=== PATIENT | female | born 1945 ===

== ENCOUNTER 2018-03-04 19:51 | Inpatient (IN) | payer MEDICARE ==
[2018-03-04] MEDS ORDERED: Ondansetron HCl/PF 4 MG/2 ML Vial IVP PRN (21:52)
[2018-03-04] MEDS ORDERED: Acetaminophen 325 MG TAB PO PRN (21:52)
[2018-03-04] MEDS ORDERED: Ondansetron ODT 4 MG TAB SL PRN (21:52)
[2018-03-04] MEDS ORDERED: Phenazopyridine HCl 97.5 MG TABLET PO PRN (23:01)
[2018-03-04] MEDS ORDERED: Milk Of Magnesia 30 ML UDCUP PO PRN (23:01)
[2018-03-04] MEDS ORDERED: Mag-Al 1200 mg/1200 mg/30 ML UDCUP PO PRN (23:01)
[2018-03-04] MEDS ORDERED: Loperamide HCl 2 MG CAP PO PRN (23:01)
[2018-03-04] MEDS ORDERED: Albuterol Sulfate 1.25 MG/3 ML NEB NEB PRN (23:01)
[2018-03-05 00:50] VITALS: BMI 25.1
[2018-03-05] MEDS: cefTRIAXone\\ROCEPHIN 1 GM in Sodium Chloride 0.9% 100 ML IVPB SCH (01:48)
[2018-03-05] MEDS ORDERED: guaiFENesin/Dextromethorphan 10 ML UDCUP PO PRN (06:23)
[2018-03-05] MEDS ORDERED: Docusate Calcium (SURFAK) 240 MG CAP PO PRN (06:23)
[2018-03-05] MEDS ORDERED: Dextrose 5% in Water 1,000 ML IV PRN (06:23)
[2018-03-05] MEDS ORDERED: Dextrose 50% Abboject 50 ML SYRINGE SLOW IVP PRN (06:23)
--- NOTE | 2018-03-05 08:06 | HP ---
PRIMARY CARE PHYSICIAN: Dr. Gonzalez at [facility]. CODE STATUS: DNR has been verified in chart. TIME OF EVALUATION: 2300. CHIEF COMPLAINT: The patient was found to have fever, worsening mentation. History gathered from records and nursing staff. HISTORY OF PRESENT ILLNESS: This is a 72-year-old female with past medical history of Alzheimer disease, also has a history of sacral ulcer, that is chronic, brought to the hospital today after in the prison noted the patient has a temperature of 103, change in mental status, that it was worse than at the baseline dementia for the patient. There are no clear triggers, no alleviating factors. History is gathered from records, patient is unable to give any history. REVIEW OF SYSTEMS: Unable to obtain, patient is nonverbal. PAST MEDICAL HISTORY: As per records, Alzheimer disease, chronic wound, atrial fibrillation, diabetes, hypertension, cerebrovascular accident. SOCIAL HISTORY: The patient lives in [facility]. PAST SURGICAL HISTORY: Unable to obtain since patient is nonverbal. FAMILY HISTORY: Unable to obtain as the patient is nonverbal. SOCIAL HISTORY: No reported history of smoking, alcohol or drugs. HOME MEDICATIONS: Please see home medication reconciliation for details. PHYSICAL EXAMINATION: VITAL SIGNS: Patient's blood pressure has been in the 130-140 systolic, with a heart rate of 96, normal temperature, respiratory rate 16. GENERAL APPEARANCE: The patient is nonverbal, resting comfortable in bed, no acute distress. HEENT: Moist oral mucosa. RESPIRATORY: Bilateral air entry. No rales, no wheezing. Symmetrical expansion. CARDIOVASCULAR: Normal rate, regular rhythm, no gallop. No edema. ABDOMEN: Soft, normal bowel sounds. : Baseline renal function, the patient has hypertrophic changes due to underlying dementia. SKIN: Warm and intact. No pain, no rash except for one in the sacral area. NEUROLOGIC: Patient has underlying severe dementia, she is at baseline sensorium. No evidence of any new focal weakness. PSYCHIATRIC: Unable to explore. LABORATORY DATA: Labs prior to transfer were reviewed. Sodium 142, potassium 4.1, chloride level 108, CO2 of 24, anion gap 14, glucose level 229, creatinine 0.6, BUN and creatinine ratio 39, GFR 118. LFTs were normal. White count 11.8 , hemoglobin 11, MCV 75, platelet count is 157. Urine was positive with white count 10-15. ASSESSMENT AND PLAN: 1. Acute encephalopathy on top of underlying dementia, likely secondary to urinary tract infection. We will monitor, the patient will need supportive care. We will treat underlying condition. 2. Urinary tract infection. We will place the patient on antibiotics, follow cultures, adjust them as needed. 3. Underlying congestive heart failure. We will reconcile home medications, this problem is chronic, seems to be stable at this point. 4. Underlying dementia, reconcile home medications, supportive care. 5. History of diabetes, uncontrolled, hyperglycemia, we will place the patient on a sliding scale. 6. Deep venous thrombosis prophylaxis. 7. History of hypertension, has been stable, reconcile home medications, adjust them as needed. 8. Chronic sacral wound , continue wound care, the patient already received antibiotics. risk assessment: high due to acute encephalopathy MTDD
[2018-03-05 08:08] LABS: #Lymphocytes 1.3 thou/uL (1.20-3.40); #Monocytes 1.1 thou/uL (0.11-0.59); #Neutrophils 7.4 thou/uL (1.40-6.50); %Basophils 0.2 % (0.0-1.0); %Eosinophils 0.5 % (0.0-10.0); %Lymphocytes 13.3 % (21.0-51.0); %Monocytes 11.2 % (0.0-10.0); %Neutrophils 74.9 % (42.0-75.0); Hemoglobin 10.1 g/dL (12.0-16.0); Mean Corpuscular HGB CONC 32.3 g/dL (32.0-36.0); Mean Corpuscular Hemoglobin 26.1 pg (27.0-31.0); Mean Corpuscular Volume 80.7 fL (78.0-98.0); Mean Platelet Volume 6.7 fL (7.4-10.4); Platelet Count 224 thou/uL (130-400); RBC Distribution Width 12.9 % (11.5-14.5); Red Blood Cell (RBC) Count 3.88 mill/uL (4.20-5.40); White Blood Cell (WBC) Count 9.9 thou/uL (4.8-10.8)
[2018-03-05 08:16] LABS: INR-International Normal Ratio 1.3; PTT 45.4 SEC (22.9-36.1); Prothrombin Time 16.7 SEC (12.0-14.7)
[2018-03-05 08:26] LABS: ALT (SGPT) 8 U/L (8-55); AST (SGOT) 7 U/L (5-34); Albumin 2.7 g/dL (3.4-4.8); Alkaline Phosphatase 104 U/L (40-150); Anion Gap 13 mmol/L (10-20); BUN (Urea Nitrogen) 21 mg/dL (9.8-20.1); Bilirubin, Total 0.3 mg/dL (0.2-1.2); Calc. Creatinine Clearance 92 mL/min (70-130); Calcium 8.8 mg/dL (7.8-10.44); Carbon Dioxide 21 mmol/L (23-31); Chloride 115 mmol/L (98-107); Estimated GFR-MDRD Greater than 90; Globulin 3.2 g/dL (2.4-3.5); Glucose 208 mg/dL (83-110); Potassium 3.2 mmol/L (3.5-5.1); Protein, Total 5.9 g/dL (6.0-8.3); Sodium 146 mmol/L (136-145)
[2018-03-05] MEDS: Vancomycin HCl 1 GM in Premix Bag 1 BAG IVPB SCH ×2 (08:57→20:16)
[2018-03-05] MEDS ORDERED: Non-Formulary Item 1 EACH (Arginine/Ascorbate Sod/Vite Ac [Arginaid Powder] 1 PACKET) PO SCH (09:00)
[2018-03-05] MEDS: Meloxicam 15 MG TAB PO SCH (10:22)
[2018-03-05] MEDS: Atorvastatin Calcium 10 MG TAB PO SCH (10:22)
[2018-03-05] MEDS: Digoxin 0.125 MG TAB PO SCH (10:22)
[2018-03-05] MEDS: Ascorbic Acid 500 mg Chewable Tablet PO SCH (10:23)
[2018-03-05] MEDS: Potassium Chloride 20 MEQ TAB PO SCH (10:23)
[2018-03-05] MEDS: Docusate 100 MG CAP PO SCH ×2 (10:24→20:16)
[2018-03-05] MEDS: Ferrous Sulfate 325 MG TAB PO SCH (10:24)
[2018-03-05] MEDS: Senokot S 8.6-50 MG TAB PO SCH (10:24)
--- NOTE | 2018-03-05 11:56 | PDOC.PN ---
- Subjective Encounter Start Date: 03/05/18 Encounter Start Time: 08:50 Subjective: lethargic but oriented -: no chest pain or palp - Objective Resuscitation Status: Resuscitation Status DNR:Do Not Resuscitate MAR Reviewed: Yes Vital Signs & Weight: Vital Signs (12 hours) Temp Pulse Resp BP Pulse Ox 03/05/18 10:22 85 03/05/18 08:00 98.2 F 91 20 126/58 L 97 03/05/18 04:00 98.1 F 97 16 139/70 96 03/05/18 00:00 97.6 F 98 16 135/61 98 Weight Weight 146 lb 8 oz I&O: 03/04/18 03/05/18 03/06/18 06:59 06:59 06:59 Intake Total 100 Output Total 525 Balance -425 Result Diagrams: 03/05/18 07:47 03/05/18 07:47 Additional Labs: Accuchecks 03/05/18 03/05/18 11:04 06:03 POC Glucose 223 H 193 H Phys Exam - Physical Examination HEENT: PERRLA, sclera anicteric Neck: no JVD, supple Respiratory: no wheezing rhonchi++ Cardiovascular: RRR, no rub Gastrointestinal: soft, no distention, positive bowel sounds Musculoskeletal: pulses present, edema present old right hemiparesis Psychiatric: A&O x 3 Dx/Plan (1) Sacral decubitus ulcer Status: Chronic (2) Encephalopathy acute Code(s): G93.40 - ENCEPHALOPATHY, UNSPECIFIED Status: Acute Comment: resolved (3) Physical deconditioning Code(s): R53.81 - OTHER MALAISE Status: Chronic (4) Anemia, normocytic normochromic Code(s): D64.9 - ANEMIA, UNSPECIFIED Status: Chronic (5) DM type 2 (diabetes mellitus, type 2) Status: Chronic Qualifiers: Diabetes mellitus senior living insulin use: without intermodal customer service use Diabetes mellitus complication status: with hyperglycemia Qualified Code(s): E11.65 - Type 2 diabetes mellitus with hyperglycemia (6) Dementia Code(s): F03.90 - UNSPECIFIED DEMENTIA WITHOUT BEHAVIORAL DISTURBANCE Status: Chronic Qualifiers: Dementia type: unspecified type Dementia behavioral disturbance: without behavioral disturbance Qualified Code(s): F03.90 - Unspecified dementia without behavioral disturbance (7) Dyslipidemia Code(s): E78.5 - HYPERLIPIDEMIA, UNSPECIFIED Status: Chronic (8) Dysphagia Code(s): R13.10 - DYSPHAGIA, UNSPECIFIED Status: Chronic Qualifiers: Dysphagia type: unspecified Qualified Code(s): R13.10 - Dysphagia, unspecified (9) FTT (failure to thrive) in adult Status: Chronic (10) Hemiparesis and other late effects of cerebrovascular accident Code(s): I69.359 - HEMIPLGA FOLLOWING CEREBRAL INFARCTION AFFECTING UNSP SIDE; I69.398 - OTHER SEQUELAE OF CEREBRAL INFARCTION Status: Chronic Comment: right hemiparesis - Plan is on ceftriaxone and vanc -: tmax of 99 last 24hrs -: is oriented now, wants to be DNR -: has wound vac to decubitus area, ?surg debridement -: await urine cs, prognosis guarded, was dc'd on hospice 02/04/17 * . to continue dig, risperdal, trazadone, lipitor. Tx to medical floor May feed her if ok with gen surgery. Review of Systems - Medications/Allergies Allergies/Adverse Reactions: Allergies Allergy/AdvReac Type Severity Reaction Status Date / Time No Known Allergies Allergy Verified 03/04/18 23:39 Medications: Current Medications Acetaminophen (Tylenol) 650 mg PO Q4H PRN PRN Reason: Headache/Fever or Pain Al Hydroxide/Mg Hydroxide (Maalox) 15 ml PO Q6H PRN PRN Reason: Heartburn or Indigestion Albuterol Sulfate (Albuterol Sulfate) 1.25 mg NEB Q6H PRN PRN Reason: Wheezing Ascorbic Acid (Vitamin C) 500 mg PO DAILY [facility] Last Admin: 03/05/18 10:23 Dose: 500 mg Atorvastatin Calcium (Lipitor) 5 mg PO DAILY [facility] Last Admin: 03/05/18 10:22 Dose: 5 mg Dextrose/Water (Dextrose 50%) 25 gm SLOW IVP PRN PRN PRN Reason: Hypoglycemia Digoxin (Lanoxin) 0.125 mg PO DAILY [facility] Last Admin: 03/05/18 10:22 Dose: 0.125 mg Docusate Calcium (Surfak) 240 mg PO BIDPRN PRN PRN Reason: Constipation Docusate Sodium (Colace) 100 mg PO BID [facility] Last Admin: 03/05/18 10:24 Dose: 100 mg Famotidine (Pepcid) 20 mg PO BID [facility] Ferrous Sulfate (Feosol) 325 mg PO QAM-WM [facility] Last Admin: 03/05/18 10:24 Dose: 325 mg Glucagon (Glucagon) 1 mg IM PRN PRN PRN Reason: Hypoglycemia Guaifenesin/Dextromethorphan (Robitussin Dm) 10 ml PO Q6H PRN PRN Reason: Cough Ceftriaxone Sodium 1 gm/ (Sodium Chloride) 100 mls @ 200 mls/hr IVPB Q24HR [facility] Last Admin: 03/05/18 01:48 Dose: 100 mls Dextrose/Water (D5w) 1,000 mls @ 0 mls/hr IV .Q0M PRN; As Directed PRN Reason: Hypoglycemia Vancomycin HCl 1 gm/ Device 200 mls @ 200 mls/hr IVPB Q12HR [facility] Last Admin: 03/05/18 08:57 Dose: 200 mls Insulin Human Lispro (Humalog) 0 units SC .MILD SLIDING SCALE PRN PRN Reason: Mild Correctional Scale Loperamide HCl (Imodium) 2 mg PO ASDIR PRN PRN Reason: Diarrhea/Loose Stools Magnesium Hydroxide (Milk Of Magnesium) 30 ml PO Q6H PRN PRN Reason: Constipation Melatonin (Melatonin) 3 mg PO HS [facility] Meloxicam (Mobic) 15 mg PO DAILY [facility] Last Admin: 03/05/18 10:22 Dose: 15 mg Phenazopyridine HCl (Azo Standard) 195 mg PO Q8H PRN PRN Reason: painful urination Potassium Chloride (K-Dur) 20 meq PO DAILY [facility] Last Admin: 03/05/18 10:23 Dose: 20 meq Risperidone (Risperidone) 0.5 mg PO HS [facility] Senna/Docusate Sodium (Senokot S) 1 tab PO DAILY [facility] Last Admin: 03/05/18 10:24 Dose: 1 tab Sodium Chloride (Flush - Normal Saline) 10 ml IVF Q12HR [facility] Last Admin: 03/05/18 08:57 Dose: 10 ml Sodium Chloride (Flush - Normal Saline) 10 ml IVF PRN PRN PRN Reason: Saline Flush Tramadol HCl (Ultram) 50 mg PO HS [facility] Trazodone HCl (Desyrel) 100 mg PO HS [facility]
--- NOTE | 2018-03-05 12:12 | PQF ---
CLINICAL DOCUMENTATION IMPROVEMENT CLARIFICATION FORM: ICD-10 Updated PLEASE DO AN ADDENDUM TO THE PROGRESS NOTE WITH ANY DOCUMENTATION UPDATES OR ADDITIONS AND CARRY THROUGH TO DC SUMMARY. THANK YOU. DATE: 03/05/18 ATTN: DR. JOSE Please exercise your independent, professional judgment in responding to the clarification form. Clinical indicators are provided on the bottom of this form for your review Please check appropriate box(es): [ x ] Sepsis due to: (Pna, UTI, gangrenous gall bladder, etc.) ___uti Due to: [ ] Device (please specify) [ ] Implant [ ] Graft [ ] Infusion [ ] SIRS due to non-infectious process (please specify etiology) [ ] with organ dysfunction [ ] without organ dysfunction [ ] Severe sepsis with acute organ dysfunction of: (Examples: respiratory failure, encephalopathy, acute kidney failure, other) [ ] Septic Shock [ ] Localized infection without sepsis [ ] Other diagnosis [ ] Unable to determine In addition, please specify: Present on Admission (POA): [x ] Yes [ ] No [ ] Unable to determine For continuity of documentation, please document condition throughout progress notes and discharge summary. Thank You. CLINICAL INDICATORS - SIGNS / SYMPTOMS / LABS ER NOTE: "SEPSIS" "EMS REPORTS INCREASED AMS...EMS REPORTS A FEVER" PULSE 102 RR 22 RISKS: SACRAL WOUND UTI TREATMENT: IV VANCOMYCIN (ER-PRESENT) IV ROCEPHIN (03/04-PRESENT) GENERAL SURGERY CONSULT CARDIAC MONITORING SERIAL LABS SAP Psychiatry Adult Physician Crystal Reports Winform Viewer(This form is maintained as a part of the permanent medical record) 2014 [employer]. All Rights Reserved NEGRA [email or web address] Office: [phone] M[facility] IMOGEN[facility] BASSETT HOSPITALRoberto
[2018-03-05] MEDS: Famotidine 20 MG TAB PO SCH ×2 (14:26→20:17)
[2018-03-05] MEDS: risperiDONE 0.25 MG TAB PO SCH (20:17)
[2018-03-05] MEDS: traZODone HCl 50 MG TAB PO SCH (20:17)
[2018-03-05] MEDS: traMADol HCl 50 MG TAB PO SCH (20:18)
[2018-03-05] MEDS: Melatonin 3 MG TAB PO SCH (20:37)
[2018-03-06] MEDS: cefTRIAXone\\ROCEPHIN 1 GM in Sodium Chloride 0.9% 100 ML IVPB SCH (00:10)
[2018-03-06 03:53] LABS: #Lymphocytes 1.7 thou/uL (1.20-3.40); #Monocytes 1.2 thou/uL (0.11-0.59); %Basophils 0.1 % (0.0-1.0); %Eosinophils 0.3 % (0.0-10.0); %Lymphocytes 17.3 % (21.0-51.0); %Monocytes 12.1 % (0.0-10.0); %Neutrophils 70.2 % (42.0-75.0); Hemoglobin 9.4 g/dL (12.0-16.0); Mean Corpuscular HGB CONC 32.9 g/dL (32.0-36.0); Mean Corpuscular Volume 78.9 fL (78.0-98.0); Mean Platelet Volume 6.1 fL (7.4-10.4); Platelet Count 213 thou/uL (130-400); RBC Distribution Width 12.7 % (11.5-14.5); Red Blood Cell (RBC) Count 3.62 mill/uL (4.20-5.40); White Blood Cell (WBC) Count 9.9 thou/uL (4.8-10.8)
[2018-03-06 04:11] LABS: Anion Gap 13 mmol/L (10-20); BUN (Urea Nitrogen) 21 mg/dL (9.8-20.1); Calc. Creatinine Clearance 100 mL/min (70-130); Carbon Dioxide 21 mmol/L (23-31); Chloride 115 mmol/L (98-107); Estimated GFR-MDRD Greater than 90; Glucose 174 mg/dL (83-110); Potassium 3.4 mmol/L (3.5-5.1); Sodium 146 mmol/L (136-145)
[2018-03-06 08:16] LABS: Vancomycin, Trough 18.2 ug/mL
[2018-03-06] MEDS: Digoxin 0.125 MG TAB PO SCH (09:21)
[2018-03-06] MEDS: Atorvastatin Calcium 10 MG TAB PO SCH (09:21)
[2018-03-06] MEDS: Ascorbic Acid 500 mg Chewable Tablet PO SCH (09:21)
[2018-03-06] MEDS: Ferrous Sulfate 325 MG TAB PO SCH (09:21)
[2018-03-06] MEDS: Famotidine 20 MG TAB PO SCH ×2 (09:22→22:08)
[2018-03-06] MEDS: Meloxicam 15 MG TAB PO SCH (09:22)
[2018-03-06] MEDS: Docusate 100 MG CAP PO SCH ×2 (09:22→22:11)
[2018-03-06] MEDS: Potassium Chloride 20 MEQ TAB PO SCH (09:22)
[2018-03-06] MEDS: Vancomycin HCl 1 GM in Premix Bag 1 BAG IVPB SCH ×2 (09:22→21:16)
[2018-03-06] MEDS: Senokot S 8.6-50 MG TAB PO SCH (09:22)
--- NOTE | 2018-03-06 09:58 | CON ---
DATE OF CONSULTATION: 03/06/2018 HISTORY OF PRESENT ILLNESS: Janet Jones is a 72-year-old female, nonambulatory, demented, a DNR, admitted for fever and sacral decubitus. She was admitted to the medical service. I have been asked to see her regarding surgical debridement. Wound Care has seen her and planning placement of a woun d VAC. The patient has had deterioration of mentation with fever as the reason for admission, temper atures to 103 degrees, although has been afebrile since being here. White count is normal. Family i s not present. The patient is demented. She is not a reliable historian. PAST MEDICAL HISTORY: Dementia, Alzheimer disease, chronic wounds, atrial fibrillation, diabetes, hy pertension, history of stroke. SOCIAL HISTORY: Patient lives in [facility] residential. PAST SURGICAL HISTORY: There are no surgical scars and surgical history is unreliable. ALCOHOL/DRUGS: None. OUTPATIENT MEDICATIONS: Risperidone, trazodone, tramadol, Colace, senna plus, Robitussin p.r.n., phe noperidine q.8 hours p.r.n., Zofran p.r.n., loperamide p.r.n., ibuprofen p.r.n. Colace p.r.n., Tylen ol p.r.n., Milk of Magnesia p.r.n., metformin 500 b.i.d., Meloxicam 15 mg daily, melatonin 3 mg at be dtime, atorvastatin 5 mg at bedtime, ferrous sulfate 220 mg daily, digoxin 0.25 mg daily, ascorbic ac id 500 mg daily. PHYSICAL EXAMINATION: GENERAL: The patient is pleasant, awake, but not a reliable historian. She does not answer question s reliably. VITAL SIGNS: Temp is 98.3 degrees, 92, 132/76, 5 foot 4, 146 pounds, 25 BMI. LUNGS: Clear to auscultation. CARDIAC: Regular rate and rhythm without murmur or gallop. ABDOMEN: Soft, nontender, obese. EXTREMITIES: Contracted lower extremities. Knees, and hips poor flexibility, sacral decubitus appro ximately 14 x 10 cm, necrotic tissue undermining extends down to the sacrum. ASSESSMENT AND PLAN: Stage IV decubitus in a nonambulatory, bedridden patient. Overall, prognosis i s poor. She is DNR. We will plan bedside debridement. Wound Care will place a wound VAC, but overa ll prognosis is poor.
--- NOTE | 2018-03-06 12:09 | PDOC.PN ---
- Subjective Encounter Start Date: 03/06/18 Encounter Start Time: 09:35 Subjective: awake, no sob, not in distress - Objective Resuscitation Status: Resuscitation Status DNR:Do Not Resuscitate MAR Reviewed: Yes Vital Signs & Weight: Vital Signs (12 hours) Temp Pulse Resp BP Pulse Ox 03/06/18 11:43 97.6 F 89 20 132/76 94 L 03/06/18 09:21 92 03/06/18 07:53 98.3 F 92 20 132/76 91 L 03/06/18 04:52 98.8 F 85 20 127/76 99 Weight Admit Weight 146 lb Weight 146 lb 8 oz I&O: 03/05/18 03/06/18 03/07/18 06:59 06:59 06:59 Intake Total 100 580 Output Total 525 375 Balance -425 205 Result Diagrams: 03/06/18 03:35 03/06/18 03:35 Additional Labs: Accuchecks 03/06/18 03/05/18 03/05/18 04:23 20:38 16:34 POC Glucose 170 H 166 H 180 H Phys Exam - Physical Examination HEENT: PERRLA, moist MMs Neck: no JVD, supple Respiratory: no wheezing, no rales Cardiovascular: RRR, no significant murmur Gastrointestinal: soft, non-tender, positive bowel sounds sacral decub Musculoskeletal: pulses present, edema present right hemiplegia, moves left UE freely but not lower Dx/Plan (1) Sepsis Code(s): A41.9 - SEPSIS, UNSPECIFIED ORGANISM Status: Acute Qualifiers: Sepsis type: sepsis due to unspecified organism Qualified Code(s): A41.9 - Sepsis, unspecified organism (2) Sacral decubitus ulcer Status: Chronic Qualifiers: Pressure ulcer stage: stage 4 Qualified Code(s): L89.154 - Pressure ulcer of sacral region, stage 4 (3) Encephalopathy acute Code(s): G93.40 - ENCEPHALOPATHY, UNSPECIFIED Status: Resolved Comment: resolved (4) Physical deconditioning Code(s): R53.81 - OTHER MALAISE Status: Chronic (5) Anemia, normocytic normochromic Code(s): D64.9 - ANEMIA, UNSPECIFIED Status: Chronic (6) DM type 2 (diabetes mellitus, type 2) Status: Chronic Qualifiers: Diabetes mellitus manager terminal insulin use: without snf use Diabetes mellitus complication status: with hyperglycemia Qualified Code(s): E11.65 - Type 2 diabetes mellitus with hyperglycemia (7) Dementia Code(s): F03.90 - UNSPECIFIED DEMENTIA WITHOUT BEHAVIORAL DISTURBANCE Status: Chronic Qualifiers: Dementia type: unspecified type Dementia behavioral disturbance: without behavioral disturbance Qualified Code(s): F03.90 - Unspecified dementia without behavioral disturbance (8) Dyslipidemia Code(s): E78.5 - HYPERLIPIDEMIA, UNSPECIFIED Status: Chronic (9) Dysphagia Code(s): R13.10 - DYSPHAGIA, UNSPECIFIED Status: Chronic Qualifiers: Dysphagia type: unspecified Qualified Code(s): R13.10 - Dysphagia, unspecified (10) FTT (failure to thrive) in adult Status: Chronic (11) Hemiparesis and other late effects of cerebrovascular accident Code(s): I69.359 - HEMIPLGA FOLLOWING CEREBRAL INFARCTION AFFECTING UNSP SIDE; I69.398 - OTHER SEQUELAE OF CEREBRAL INFARCTION Status: Chronic Comment: right hemiparesis (12) UTI (urinary tract infection) Status: Acute Qualifiers: Urinary tract infection type: acute cystitis Hematuria presence: without hematuria Qualified Code(s): N30.00 - Acute cystitis without hematuria - Plan will have debridement of sacral decub by , wound care/vac -: is on ceftriaxone and vanc -: poor prognosis, DNR, bed bound status -: continue dig, risperdal, trazadone, lipitor as before -: PT to mobilize her on bed as tolerated * . Review of Systems - Medications/Allergies Allergies/Adverse Reactions: Allergies Allergy/AdvReac Type Severity Reaction Status Date / Time No Known Allergies Allergy Verified 03/04/18 23:39 Medications: Current Medications Acetaminophen (Tylenol) 650 mg PO Q4H PRN PRN Reason: Headache/Fever or Pain Al Hydroxide/Mg Hydroxide (Maalox) 15 ml PO Q6H PRN PRN Reason: Heartburn or Indigestion Albuterol Sulfate (Albuterol Sulfate) 1.25 mg NEB Q6H PRN PRN Reason: Wheezing Ascorbic Acid (Vitamin C) 500 mg PO DAILY [facility] Last Admin: 03/06/18 09:21 Dose: Not Given Atorvastatin Calcium (Lipitor) 5 mg PO DAILY [facility] Last Admin: 03/06/18 09:21 Dose: Not Given Dextrose/Water (Dextrose 50%) 25 gm SLOW IVP PRN PRN PRN Reason: Hypoglycemia Digoxin (Lanoxin) 0.125 mg PO DAILY [facility] Last Admin: 03/06/18 09:21 Dose: Not Given Docusate Calcium (Surfak) 240 mg PO BIDPRN PRN PRN Reason: Constipation Docusate Sodium (Colace) 100 mg PO BID [facility] Last Admin: 03/06/18 09:22 Dose: Not Given Famotidine (Pepcid) 20 mg PO BID [facility] Last Admin: 03/06/18 09:22 Dose: Not Given Ferrous Sulfate (Feosol) 325 mg PO QAM-WM [facility] Last Admin: 03/06/18 09:21 Dose: Not Given Glucagon (Glucagon) 1 mg IM PRN PRN PRN Reason: Hypoglycemia Guaifenesin/Dextromethorphan (Robitussin Dm) 10 ml PO Q6H PRN PRN Reason: Cough Ceftriaxone Sodium 1 gm/ (Sodium Chloride) 100 mls @ 200 mls/hr IVPB Q24HR [facility] Last Admin: 03/06/18 00:10 Dose: 100 mls Dextrose/Water (D5w) 1,000 mls @ 0 mls/hr IV .Q0M PRN; As Directed PRN Reason: Hypoglycemia Vancomycin HCl 1 gm/ Device 200 mls @ 200 mls/hr IVPB Q12HR [facility] Last Admin: 03/06/18 09:22 Dose: 200 mls Insulin Human Lispro (Humalog) 0 units SC .MILD SLIDING SCALE PRN PRN Reason: Mild Correctional Scale Loperamide HCl (Imodium) 2 mg PO ASDIR PRN PRN Reason: Diarrhea/Loose Stools Magnesium Hydroxide (Milk Of Magnesium) 30 ml PO Q6H PRN PRN Reason: Constipation Melatonin (Melatonin) 3 mg PO HS [facility] Last Admin: 03/05/18 20:37 Dose: 3 mg Meloxicam (Mobic) 15 mg PO DAILY [facility] Last Admin: 03/06/18 09:22 Dose: Not Given Phenazopyridine HCl (Azo Standard) 195 mg PO Q8H PRN PRN Reason: painful urination Potassium Chloride (K-Dur) 20 meq PO DAILY [facility] Last Admin: 03/06/18 09:22 Dose: Not Given Risperidone (Risperidone) 0.5 mg PO HS [facility] Last Admin: 03/05/18 20:17 Dose: 0.5 mg Senna/Docusate Sodium (Senokot S) 1 tab PO DAILY [facility] Last Admin: 03/06/18 09:22 Dose: Not Given Sodium Chloride (Flush - Normal Saline) 10 ml IVF Q12HR [facility] Last Admin: 03/06/18 09:22 Dose: 10 ml Sodium Chloride (Flush - Normal Saline) 10 ml IVF PRN PRN PRN Reason: Saline Flush Tramadol HCl (Ultram) 50 mg PO HS [facility] Last Admin: 03/05/18 20:18 Dose: Not Given Trazodone HCl (Desyrel) 100 mg PO HS [facility] Last Admin: 03/05/18 20:17 Dose: 100 mg
[2018-03-06] MEDS ORDERED: Fentanyl 100 MCG/2 ML VIAL ONE ×5 (16:22→19:00)
[2018-03-06] MEDS ORDERED: HYDROmorphone 0.5 MG/0.5 ML SYRINGE ONE (17:12)
[2018-03-06] MEDS ORDERED: Digoxin 0.5 MG/2 ML AMP ONE (17:13)
[2018-03-06] MEDS ORDERED: Ondansetron HCl/PF 4 MG/2 ML Vial IVP PRN (18:26)
[2018-03-06] MEDS ORDERED: Promethazine HCl 25 MG/ML VIAL IM PRN (18:26)
[2018-03-06] MEDS ORDERED: Promethazine HCl 25 MG/ML VIAL SLOW IVP PRN (18:26)
[2018-03-06] MEDS: traZODone HCl 50 MG TAB PO SCH (22:08)
[2018-03-06] MEDS: Melatonin 3 MG TAB PO SCH (22:10)
[2018-03-06] MEDS: traMADol HCl 50 MG TAB PO SCH (22:11)
[2018-03-06] MEDS: risperiDONE 0.25 MG TAB PO SCH (22:12)
[2018-03-07] MEDS: cefTRIAXone\\ROCEPHIN 1 GM in Sodium Chloride 0.9% 100 ML IVPB SCH (01:45)
--- NOTE | 2018-03-07 02:43 | OP ---
PREOPERATIVE DIAGNOSIS: Large sacral decubitus extending into the patient's right buttocks and down her upper thigh posteriorly with undermining and tunneling and purulent discharge involving skin, sub cutaneous tissue, muscle, fascia and bone, sacrum. SURGEON: Dr. Lalo Pathak. ANESTHESIA: General. POSITION: Left lateral decubitus position. PROCEDURE: Extensive debridement of skin, subcutaneous tissue, muscle, fascia, bone, sacrum and inci marianna and drainage of tunneling abscess, right upper thigh posteriorly. DESCRIPTION OF PROCEDURE: The patient was taken to the operating room where under general anesthesia in the left lateral decubitus position, buttocks and thigh prepared with Betadine, draped in routine fashion. Sharp debridement of the decubitus necrotic tissue and undermining necrotic subcutaneous t issue with purulent foul-smelling discharge proceeded back to healthy tissue. This resulted in 19.5 cm x 6 cm and extending all the way down to the sacrum. I debrided fascia, muscle, and then debrided the sacrum with a rongeur. Wound was pulse irrigated. Wound care team arrived to place a wound VAC . The patient tolerated the procedure well and transferred to the recovery room in stable condition.
[2018-03-07 05:00] LABS: #Lymphocytes 2.5 thou/uL (1.20-3.40); #Monocytes 1.4 thou/uL (0.11-0.59); #Neutrophils 8.2 thou/uL (1.40-6.50); %Basophils 0.3 % (0.0-1.0); %Eosinophils 0.3 % (0.0-10.0); %Lymphocytes 20.2 % (21.0-51.0); %Monocytes 11.2 % (0.0-10.0); %Neutrophils 67.9 % (42.0-75.0); Mean Corpuscular Hemoglobin 25.8 pg (27.0-31.0); Mean Corpuscular Volume 80.5 fL (78.0-98.0); Mean Platelet Volume 6.6 fL (7.4-10.4); Platelet Count 209 thou/uL (130-400); RBC Distribution Width 12.7 % (11.5-14.5); Red Blood Cell (RBC) Count 3.09 mill/uL (4.20-5.40); White Blood Cell (WBC) Count 12.1 thou/uL (4.8-10.8)
[2018-03-07 05:08] LABS: Anion Gap 11 mmol/L (10-20); BUN (Urea Nitrogen) 18 mg/dL (9.8-20.1); Calc. Creatinine Clearance 94 mL/min (70-130); Calcium 8.6 mg/dL (7.8-10.44); Carbon Dioxide 24 mmol/L (23-31); Chloride 114 mmol/L (98-107); Estimated GFR-MDRD Greater than 90; Glucose 147 mg/dL (83-110); Potassium 3.6 mmol/L (3.5-5.1); Sodium 145 mmol/L (136-145)
[2018-03-07] MEDS: Meloxicam 15 MG TAB PO SCH (08:07)
[2018-03-07] MEDS: Ferrous Sulfate 325 MG TAB PO SCH (08:07)
[2018-03-07] MEDS: Atorvastatin Calcium 10 MG TAB PO SCH (08:07)
[2018-03-07] MEDS: Digoxin 0.125 MG TAB PO SCH (08:07)
[2018-03-07] MEDS: Docusate 100 MG CAP PO SCH ×2 (08:07→18:53)
[2018-03-07] MEDS: Ascorbic Acid 500 mg Chewable Tablet PO SCH (08:08)
[2018-03-07] MEDS: Potassium Chloride 20 MEQ TAB PO SCH (08:08)
[2018-03-07] MEDS: Senokot S 8.6-50 MG TAB PO SCH (08:08)
[2018-03-07] MEDS: Famotidine 20 MG TAB PO SCH ×2 (08:08→18:54)
[2018-03-07] MEDS: Vancomycin HCl 1 GM in Premix Bag 1 BAG IVPB SCH ×2 (08:08→21:22)
--- NOTE | 2018-03-07 11:50 | PDOC.PN ---
- Subjective Encounter Start Date: 03/07/18 Encounter Start Time: 08:05 Subjective: awake, is eating breakfast (being fed) -: no sob -: moves left UE freely - Objective Resuscitation Status: Resuscitation Status DNR:Do Not Resuscitate MAR Reviewed: Yes Vital Signs & Weight: Vital Signs (12 hours) Temp Pulse Resp BP Pulse Ox 03/07/18 11:00 98.7 F 99 16 107/80 95 03/07/18 08:07 90 03/07/18 08:00 98.0 F 90 14 96 03/07/18 07:39 98.0 F 90 14 124/71 96 03/07/18 05:29 103/61 03/07/18 04:00 98.3 F 90 16 92/56 L 94 L 03/07/18 00:05 99.6 F 106 H 16 115/73 97 Weight Admit Weight 146 lb Weight 146 lb 8 oz I&O: 03/06/18 03/07/18 03/08/18 06:59 06:59 06:59 Intake Total 580 100 Output Total 375 Balance 205 100 Result Diagrams: 03/07/18 03:48 03/07/18 03:48 Additional Labs: Accuchecks 03/07/18 03/07/18 03/06/18 11:09 05:49 20:45 POC Glucose 297 H 158 H 180 H 03/06/18 11:41 POC Glucose 195 H Phys Exam - Physical Examination HEENT: PERRLA, moist MMs Neck: no JVD, supple Respiratory: no wheezing, no rales Cardiovascular: RRR, no significant murmur Gastrointestinal: soft, non-tender, positive bowel sounds Musculoskeletal: pulses present, edema present right hemiplegia, severe deconditioning awake, responds to verbal questions Dx/Plan (1) Sepsis Code(s): A41.9 - SEPSIS, UNSPECIFIED ORGANISM Status: Acute Qualifiers: Sepsis type: sepsis due to unspecified organism Qualified Code(s): A41.9 - Sepsis, unspecified organism (2) Sacral decubitus ulcer Status: Chronic Qualifiers: Pressure ulcer stage: stage 4 Qualified Code(s): L89.154 - Pressure ulcer of sacral region, stage 4 (3) Encephalopathy acute Code(s): G93.40 - ENCEPHALOPATHY, UNSPECIFIED Status: Resolved Comment: resolved (4) Physical deconditioning Code(s): R53.81 - OTHER MALAISE Status: Chronic (5) Anemia, normocytic normochromic Code(s): D64.9 - ANEMIA, UNSPECIFIED Status: Chronic (6) DM type 2 (diabetes mellitus, type 2) Status: Chronic Qualifiers: Diabetes mellitus alf insulin use: without watermelon 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 use Diabetes mellitus complication status: with hyperglycemia Qualified Code(s): E11.65 - Type 2 diabetes mellitus with hyperglycemia (7) Dementia Code(s): F03.90 - UNSPECIFIED DEMENTIA WITHOUT BEHAVIORAL DISTURBANCE Status: Chronic Qualifiers: Dementia type: unspecified type Dementia behavioral disturbance: without behavioral disturbance Qualified Code(s): F03.90 - Unspecified dementia without behavioral disturbance (8) Dyslipidemia Code(s): E78.5 - HYPERLIPIDEMIA, UNSPECIFIED Status: Chronic (9) Dysphagia Code(s): R13.10 - DYSPHAGIA, UNSPECIFIED Status: Chronic Qualifiers: Dysphagia type: unspecified Qualified Code(s): R13.10 - Dysphagia, unspecified (10) FTT (failure to thrive) in adult Status: Chronic (11) Hemiparesis and other late effects of cerebrovascular accident Code(s): I69.359 - HEMIPLGA FOLLOWING CEREBRAL INFARCTION AFFECTING UNSP SIDE; I69.398 - OTHER SEQUELAE OF CEREBRAL INFARCTION Status: Chronic Comment: right hemiparesis (12) UTI (urinary tract infection) Status: Acute Qualifiers: Urinary tract infection type: acute cystitis Hematuria presence: without hematuria Qualified Code(s): N30.00 - Acute cystitis without hematuria (13) Acute blood loss as cause of postoperative anemia Code(s): D62 - ACUTE POSTHEMORRHAGIC ANEMIA Status: Acute - Plan cbc in am, transfuse if Hb <7g -: is on vanc and ceftriaxone -: had extensive debridement -: continue risperidone, dig, ferrous sulfate * . Review of Systems - Medications/Allergies Allergies/Adverse Reactions: Allergies Allergy/AdvReac Type Severity Reaction Status Date / Time No Known Allergies Allergy Verified 03/04/18 23:39 Medications: Current Medications Acetaminophen (Tylenol) 650 mg PO Q4H PRN PRN Reason: Headache/Fever or Pain Al Hydroxide/Mg Hydroxide (Maalox) 15 ml PO Q6H PRN PRN Reason: Heartburn or Indigestion Albuterol Sulfate (Albuterol Sulfate) 1.25 mg NEB Q6H PRN PRN Reason: Wheezing Ascorbic Acid (Vitamin C) 500 mg PO DAILY [facility] Last Admin: 03/07/18 08:08 Dose: 500 mg Atorvastatin Calcium (Lipitor) 5 mg PO DAILY [facility] Last Admin: 03/07/18 08:07 Dose: 5 mg Dextrose/Water (Dextrose 50%) 25 gm SLOW IVP PRN PRN PRN Reason: Hypoglycemia Digoxin (Lanoxin) 0.125 mg PO DAILY [facility] Last Admin: 03/07/18 08:07 Dose: 0.125 mg Docusate Calcium (Surfak) 240 mg PO BIDPRN PRN PRN Reason: Constipation Docusate Sodium (Colace) 100 mg PO BID [facility] Last Admin: 03/07/18 08:07 Dose: 100 mg Famotidine (Pepcid) 20 mg PO BID [facility] Last Admin: 03/07/18 08:08 Dose: 20 mg Ferrous Sulfate (Feosol) 325 mg PO QAM-WM [facility] Last Admin: 03/07/18 08:07 Dose: 325 mg Glucagon (Glucagon) 1 mg IM PRN PRN PRN Reason: Hypoglycemia Guaifenesin/Dextromethorphan (Robitussin Dm) 10 ml PO Q6H PRN PRN Reason: Cough Ceftriaxone Sodium 1 gm/ (Sodium Chloride) 100 mls @ 200 mls/hr IVPB Q24HR [facility] Last Admin: 03/07/18 01:45 Dose: 100 mls Dextrose/Water (D5w) 1,000 mls @ 0 mls/hr IV .Q0M PRN; As Directed PRN Reason: Hypoglycemia Vancomycin HCl 1 gm/ Device 200 mls @ 200 mls/hr IVPB Q12HR [facility] Last Admin: 03/07/18 08:08 Dose: 200 mls Insulin Human Lispro (Humalog) 0 units SC .MILD SLIDING SCALE PRN PRN Reason: Mild Correctional Scale Loperamide HCl (Imodium) 2 mg PO ASDIR PRN PRN Reason: Diarrhea/Loose Stools Magnesium Hydroxide (Milk Of Magnesium) 30 ml PO Q6H PRN PRN Reason: Constipation Melatonin (Melatonin) 3 mg PO HS [facility] Last Admin: 03/06/18 22:10 Dose: 3 mg Meloxicam (Mobic) 15 mg PO DAILY [facility] Last Admin: 03/07/18 08:07 Dose: 15 mg Phenazopyridine HCl (Azo Standard) 195 mg PO Q8H PRN PRN Reason: painful urination Potassium Chloride (K-Dur) 20 meq PO DAILY [facility] Last Admin: 03/07/18 08:08 Dose: 20 meq Risperidone (Risperidone) 0.5 mg PO [facility] Last Admin: 03/06/18 22:12 Dose: 0.5 mg Senna/Docusate Sodium (Senokot S) 1 tab PO DAILY [facility] Last Admin: 03/07/18 08:08 Dose: 1 tab Sodium Chloride (Flush - Normal Saline) 10 ml IVF Q12HR [facility] Last Admin: 03/07/18 08:08 Dose: 10 ml Sodium Chloride (Flush - Normal Saline) 10 ml IVF PRN PRN PRN Reason: Saline Flush Tramadol HCl (Ultram) 50 mg PO [facility] Last Admin: 03/06/18 22:11 Dose: 50 mg Trazodone HCl (Desyrel) 100 mg PO [facility] Last Admin: 03/06/18 22:08 Dose: 100 mg
[2018-03-07] MEDS: HumaLOG 300 UNITS/3 ML VIAL SC PRN (11:53)
[2018-03-07] MEDS: risperiDONE 0.25 MG TAB PO SCH (18:54)
[2018-03-07] MEDS: traZODone HCl 50 MG TAB PO SCH (18:54)
[2018-03-07] MEDS: Melatonin 3 MG TAB PO SCH (18:54)
[2018-03-07] MEDS: traMADol HCl 50 MG TAB PO SCH (18:54)
[2018-03-08] MEDS: cefTRIAXone\\ROCEPHIN 1 GM in Sodium Chloride 0.9% 100 ML IVPB SCH (00:44)
[2018-03-08 08:12] LABS: Vancomycin, Trough 27.2 ug/mL
[2018-03-08] MEDS: Ferrous Sulfate 325 MG TAB PO SCH ×2 (08:47→11:05)
[2018-03-08] MEDS: Ascorbic Acid 500 mg Chewable Tablet PO SCH ×2 (08:47→11:04)
[2018-03-08] MEDS: Meloxicam 15 MG TAB PO SCH ×2 (08:48→11:04)
[2018-03-08] MEDS: Famotidine 20 MG TAB PO SCH ×3 (08:48→21:13)
[2018-03-08] MEDS: Digoxin 0.125 MG TAB PO SCH ×2 (08:48→11:04)
[2018-03-08] MEDS: Senokot S 8.6-50 MG TAB PO SCH ×2 (08:48→11:05)
[2018-03-08] MEDS: Docusate 100 MG CAP PO SCH ×3 (08:48→21:14)
[2018-03-08] MEDS: Atorvastatin Calcium 10 MG TAB PO SCH ×2 (08:48→11:04)
[2018-03-08] MEDS: Potassium Chloride 20 MEQ TAB PO SCH ×2 (08:48→11:05)
[2018-03-08] MEDS: cefTRIAXone\\ROCEPHIN 2 GM in Sodium Chloride 0.9% 100 ML IVPB SCH (09:34)
[2018-03-08] MEDS: Acetaminophen 325 MG TAB PO PRN (11:00)
--- NOTE | 2018-03-08 14:05 | PDOC.PN ---
- Subjective Encounter Start Date: 03/08/18 Encounter Start Time: 10:10 -: old records requested/rev Pt seen and examined, chart reviewed in its entirety, this is my first visit with this patient All systems reviewed and neg for all except as stated above - Objective Resuscitation Status: Resuscitation Status DNR:Do Not Resuscitate Vital Signs & Weight: Vital Signs (12 hours) Temp Pulse Resp BP Pulse Ox 03/08/18 11:04 80 03/08/18 07:45 98.5 F 80 18 149/74 H 97 03/08/18 07:08 98.5 F 88 18 Weight Admit Weight 146 lb Weight 146 lb 8 oz I&O: 03/07/18 03/08/18 03/09/18 06:59 06:59 06:59 Intake Total 530 60 Output Total 550 Balance -20 60 Result Diagrams: 03/07/18 03:48 03/07/18 03:48 Additional Labs: Accuchecks 03/08/18 03/08/18 03/07/18 11:05 04:12 20:28 POC Glucose 176 H 167 H 162 H 03/07/18 16:37 POC Glucose 193 H Phys Exam - Physical Examination Constitutional: NAD HEENT: PERRLA, moist MMs, sclera anicteric, oral pharynx no lesions Neck: no nodes, no JVD, supple, full ROM Respiratory: no wheezing, no rales, no rhonchi, clear to auscultation bilateral Cardiovascular: RRR, no significant murmur, no rub Gastrointestinal: soft, non-tender, no distention, positive bowel sounds Musculoskeletal: pulses present, edema present Neurological: non-focal, normal sensation, moves all 4 limbs Lymphatic: no nodes Psychiatric: normal affect, A&O x 3 Skin: no rash, normal turgor, cap refill <2 seconds Deviation from normal: large sacral decub with some granluation, seen at VAC change. See pic Dx/Plan (1) Sepsis Code(s): A41.9 - SEPSIS, UNSPECIFIED ORGANISM Status: Acute Qualifiers: Sepsis type: sepsis due to unspecified organism Qualified Code(s): A41.9 - Sepsis, unspecified organism (2) UTI (urinary tract infection) Status: Acute Qualifiers: Urinary tract infection type: acute cystitis Hematuria presence: without hematuria Qualified Code(s): N30.00 - Acute cystitis without hematuria (3) Sacral decubitus ulcer Status: Chronic Qualifiers: Pressure ulcer stage: stage 4 Qualified Code(s): L89.154 - Pressure ulcer of sacral region, stage 4 (4) Acute respiratory failure with hypoxia Code(s): J96.01 - ACUTE RESPIRATORY FAILURE WITH HYPOXIA Status: Acute (5) Bacteremia due to coagulase-negative Staphylococcus Code(s): R78.81 - BACTEREMIA Status: Acute (6) Empyema of lung Code(s): J86.9 - PYOTHORAX WITHOUT FISTULA Status: Acute (7) Healthcare associated bacterial pneumonia Code(s): J15.9 - UNSPECIFIED BACTERIAL PNEUMONIA Status: Acute (8) Hypoglycemia associated with type 2 diabetes mellitus Code(s): E11.649 - TYPE 2 DIABETES MELLITUS WITH HYPOGLYCEMIA WITHOUT COMA Status: Acute (9) Hypomagnesemia Code(s): E83.42 - HYPOMAGNESEMIA Status: Acute (10) Sepsis with acute organ dysfunction Code(s): A41.9 - SEPSIS, UNSPECIFIED ORGANISM; R65.20 - SEVERE SEPSIS WITHOUT SEPTIC SHOCK Status: Acute (11) Anemia, normocytic normochromic Code(s): D64.9 - ANEMIA, UNSPECIFIED Status: Chronic (12) DM type 2 (diabetes mellitus, type 2) Status: Chronic Qualifiers: Diabetes mellitus termite technician insulin use: without termite technician use Diabetes mellitus complication status: with hyperglycemia Qualified Code(s): E11.65 - Type 2 diabetes mellitus with hyperglycemia (13) Dementia Code(s): F03.90 - UNSPECIFIED DEMENTIA WITHOUT BEHAVIORAL DISTURBANCE Status: Chronic Qualifiers: Dementia type: unspecified type Dementia behavioral disturbance: without behavioral disturbance Qualified Code(s): F03.90 - Unspecified dementia without behavioral disturbance (14) Dysphagia Code(s): R13.10 - DYSPHAGIA, UNSPECIFIED Status: Chronic Qualifiers: Dysphagia type: unspecified Qualified Code(s): R13.10 - Dysphagia, unspecified (15) FTT (failure to thrive) in adult Status: Chronic - Plan * .
[2018-03-08] MEDS ORDERED: Vancomycin HCl 750 MG in Sodium Chloride 0.9% 250 ML 250 ML IVPB SCH (21:00)
[2018-03-08] MEDS: Melatonin 3 MG TAB PO SCH (21:13)
[2018-03-08] MEDS: traMADol HCl 50 MG TAB PO SCH (21:14)
[2018-03-08] MEDS: risperiDONE 0.25 MG TAB PO SCH (21:14)
[2018-03-08] MEDS: traZODone HCl 50 MG TAB PO SCH (21:14)
[2018-03-09 05:13] LABS: Anion Gap 11 mmol/L (10-20); BUN (Urea Nitrogen) 15 mg/dL (9.8-20.1); Calc. Creatinine Clearance 102 mL/min (70-130); Calcium 8.6 mg/dL (7.8-10.44); Carbon Dioxide 22 mmol/L (23-31); Chloride 115 mmol/L (98-107); Estimated GFR-MDRD Greater than 90; Glucose 149 mg/dL (83-110); Magnesium 1.5 mg/dL (1.6-2.6); Potassium 3.2 mmol/L (3.5-5.1); Sodium 145 mmol/L (136-145)
[2018-03-09 06:01] LABS: Band 8 % (5-11); Hemoglobin 7.8 g/dL (12.0-16.0); Lymphocytes 24 % (21-51); MDiff Complete? YES; Mean Corpuscular HGB CONC 32.5 g/dL (32.0-36.0); Mean Corpuscular Hemoglobin 25.8 pg (27.0-31.0); Mean Corpuscular Volume 79.3 fL (78.0-98.0); Mean Platelet Volume 6.3 fL (7.4-10.4); Monocytes 7 % (0-10); Neutrophil 61 % (42-75); Platelet Count 206 thou/uL (130-400); Red Blood Cell (RBC) Count 3.03 mill/uL (4.20-5.40); White Blood Cell (WBC) Count 8.7 thou/uL (4.8-10.8)
[2018-03-09] MEDS: Famotidine 20 MG TAB PO SCH ×2 (09:15→21:15)
[2018-03-09] MEDS: Digoxin 0.125 MG TAB PO SCH (09:15)
[2018-03-09] MEDS: Senokot S 8.6-50 MG TAB PO SCH (09:15)
[2018-03-09] MEDS: Acetaminophen 325 MG TAB PO PRN ×2 (09:15→14:52)
[2018-03-09] MEDS: Ascorbic Acid 500 mg Chewable Tablet PO SCH (09:15)
[2018-03-09] MEDS: Meloxicam 15 MG TAB PO SCH (09:15)
[2018-03-09] MEDS: cefTRIAXone\\ROCEPHIN 2 GM in Sodium Chloride 0.9% 100 ML IVPB SCH (09:16)
[2018-03-09] MEDS: Ferrous Sulfate 325 MG TAB PO SCH (09:16)
[2018-03-09] MEDS: Docusate 100 MG CAP PO SCH ×2 (09:16→21:15)
[2018-03-09] MEDS: Atorvastatin Calcium 10 MG TAB PO SCH (09:16)
[2018-03-09] MEDS: Potassium Chloride 20 MEQ TAB PO SCH ×3 (09:16→14:53)
[2018-03-09] MEDS ORDERED: Lidocaine 4% Topical Sol 50 ML BOT TOP PRN (10:04)
[2018-03-09] MEDS ORDERED: Fentanyl 100 MCG/2 ML VIAL SLOW IVP SCH (10:30)
[2018-03-09] MEDS ORDERED: Magnesium Sulfate 2 GM in Sodium Chloride 0.9% 100 ML IVPB SCH (11:00)
[2018-03-09] MEDS: HumaLOG 300 UNITS/3 ML VIAL SC PRN (12:05)
[2018-03-09] MEDS: traZODone HCl 50 MG TAB PO SCH (21:14)
[2018-03-09] MEDS: traMADol HCl 50 MG TAB PO SCH (21:14)
[2018-03-09] MEDS: risperiDONE 0.25 MG TAB PO SCH (21:15)
[2018-03-09] MEDS: Melatonin 3 MG TAB PO SCH (21:15)
[2018-03-10 05:17] LABS: #Eosinphils 0.1 thou/uL (0.0-0.7); #Lymphocytes 2.5 thou/uL (1.20-3.40); #Monocytes 0.9 thou/uL (0.11-0.59); #Neutrophils 5.5 thou/uL (1.40-6.50); %Basophils 0.5 % (0.0-1.0); %Eosinophils 1.1 % (0.0-10.0); %Lymphocytes 27.6 % (21.0-51.0); %Monocytes 9.6 % (0.0-10.0); %Neutrophils 61.1 % (42.0-75.0); Hemoglobin 7.6 g/dL (12.0-16.0); Mean Corpuscular HGB CONC 31.7 g/dL (32.0-36.0); Mean Corpuscular Hemoglobin 25.7 pg (27.0-31.0); Mean Corpuscular Volume 81.3 fL (78.0-98.0); Mean Platelet Volume 6.6 fL (7.4-10.4); Platelet Count 210 thou/uL (130-400); RBC Distribution Width 13.5 % (11.5-14.5); Red Blood Cell (RBC) Count 2.96 mill/uL (4.20-5.40)
[2018-03-10 05:52] LABS: Anion Gap 12 mmol/L (10-20); BUN (Urea Nitrogen) 17 mg/dL (9.8-20.1); Calc. Creatinine Clearance 94 mL/min (70-130); Calcium 8.7 mg/dL (7.8-10.44); Carbon Dioxide 22 mmol/L (23-31); Chloride 116 mmol/L (98-107); Estimated GFR-MDRD Greater than 90; Glucose 149 mg/dL (83-110); Magnesium 2.2 mg/dL (1.6-2.6); Potassium 4.5 mmol/L (3.5-5.1); Sodium 145 mmol/L (136-145)
[2018-03-10 07:58] VITALS: BP 144/76; TEMP 97.9
[2018-03-10] MEDS: Docusate 100 MG CAP PO SCH (08:14)
[2018-03-10] MEDS: Meloxicam 15 MG TAB PO SCH (08:14)
[2018-03-10] MEDS: Atorvastatin Calcium 10 MG TAB PO SCH (08:14)
[2018-03-10] MEDS: Potassium Chloride 20 MEQ TAB PO SCH (08:14)
[2018-03-10] MEDS: Famotidine 20 MG TAB PO SCH (08:14)
[2018-03-10] MEDS: Digoxin 0.125 MG TAB PO SCH (08:14)
[2018-03-10] MEDS: Senokot S 8.6-50 MG TAB PO SCH (08:15)
[2018-03-10] MEDS: Ferrous Sulfate 325 MG TAB PO SCH (08:15)
[2018-03-10] MEDS: Ascorbic Acid 500 mg Chewable Tablet PO SCH (08:15)
[2018-03-10] MEDS: cefTRIAXone\\ROCEPHIN 2 GM in Sodium Chloride 0.9% 100 ML IVPB SCH (10:40)
--- NOTE | 2018-03-11 03:08 | DIS ---
DATE OF ADMISSION: 03/04/2018 DATE OF DISCHARGE: 03/10/2018 DISCHARGE DIAGNOSES: 1. Infected sacral decubitus. 2. Urinary tract infection. 3. Encephalopathy. 4. Chronic dementia. 5. History of congestive heart failure. 6. Diabetes. HISTORY: This patient is a 72-year-old female with a history of dementia, who is fairly debilitated. The patient has had a chronic sacral wound but was noted to have acute change in her mental status and a temperature of 100.3. She presented to an outside emergency department in [place], where she was noted to have a white count of 11.8. She also had evidence of urinary tract infection. It was felt that patient might be encephalopathic from the urinary tract infection. She was transferred her e for admission. Subsequently, Wound Care and Surgery were consulted regarding the patient's sacral decubitus and the patient was maintained on Rocephin and vancomycin. Surgery subsequently took the p atient to the operating room to debride the sacral decubitus area and found a significant area of fou l smelling necrotic tissue that was debrided down to viable tissue. This left a defect that was 19.5 x 6 cm and extending down to the sacrum. Dr. Pathak debrided fascia muscle and the sacrum with a ro ngeur. A wound VAC was then placed. In reviewing the records from the outside emergency department, the patient's urine culture grew an E. coli. It was pansensitive and there were mixed bacteria from the wound culture. Ultimately, the patient defervesced and appeared to be stable. PHYSICAL EXAMINATION: VITAL SIGNS: On the day of discharge, temperature was 97.9, pulse 77, respirations 18, O2 saturation was 98% on room air, BP was 144/76. Patient remained confused consistent with her baseline Alzheime r's, but she was awake and generally alert. HEART: Regular rate and rhythm without murmurs. LUNGS: Clear bilaterally. ABDOMEN: Soft and nondistended. EXTREMITIES: Warm and dry. DISCHARGE INSTRUCTIONS: Patient will be discharged back to the longterm facility with a wound VAC. She will have her usual diet and be on bed rest. She will have her usual home medications to discharge medications to include Risperdal 0.125 mg at bedtime, trazodone 100 mg at bedtime, tramadol 50 mg q.6. p.r.n., Senokot, Robitussin-DM p.r.n., potassium 20 mEq daily, Zofran 4 mg q.6 p.r.n, Arg inaid powder 1 packet b.i.d., Tylenol p.r.n., Milk of Magnesia p.r.n., Glucophage 500 b.i.d., meloxic am 15 mg every day, melatonin 3 mg at bedtime, Lipitor 5 mg at bedtime, digoxin 0.125 every day, paula min C 500 every day. Additionally, she will have a prescription for Levaquin 500 mg p.o. daily for 7 days. She is to follow up with her primary physician at their facility. She should be returned to the emergency department should she have any further problems.
== END 2018-03-10 16:56 | DRG 853 ==
LOC: ERS 19:51 → 2NO 20:28 → T4-A 03-05 14:18
PROVIDERS: ADMIT Emergency Medicine; ATTEND Emergency Medicine
PROC: 0QB10ZZ Excision of Sacrum, Open Approach (ICD-10-PCS; principal; 2018-03-06)
DX: A41.9 Sepsis, unspecified organism (principal); L89.154 Pressure ulcer of sacral region, stage 4; G93.40 Encephalopathy, unspecified; J96.01 Acute respiratory failure with hypoxia; J86.9 Pyothorax without fistula; J15.9 Unspecified bacterial pneumonia; N30.00 Acute cystitis without hematuria; I69.359 Hemiplegia and hemiparesis following cerebral infarction affecting unspecified side; D62 Acute posthemorrhagic anemia; B96.20 Unspecified Escherichia coli [E. coli] as the cause of diseases classified elsewhere; G30.9 Alzheimer's disease, unspecified; F02.80 Dementia in other diseases classified elsewhere, unspecified severity, without behavioral disturbance, psychotic disturbance, mood disturbance, and anxiety; Y95 Nosocomial condition; E11.649 Type 2 diabetes mellitus with hypoglycemia without coma; E83.42 Hypomagnesemia; D64.9 Anemia, unspecified; R65.20 Severe sepsis without septic shock; R13.10 Dysphagia, unspecified; R62.7 Adult failure to thrive; E78.5 Hyperlipidemia, unspecified; Z66 Do not resuscitate; I11.0 Hypertensive heart disease with heart failure; I50.9 Heart failure, unspecified; I48.91 Unspecified atrial fibrillation; Z74.01 Bed confinement status; Z79.84 Long term (current) use of oral hypoglycemic drugs; Z79.899 Other long term (current) drug therapy
CPT/HCPCS: 36415; 36416; 80048; 80053; 80202; 83735; 83880; 85025; 85610; 85730; 86850; 86900; 86901; 88304; 88305; 96365; A4216; G8996-GN-CK; G8996-GN-CL; G8997-GN-CI; G8997-GN-CK; J0696; J1160; J1170; J2001; J3010; J3370; J3475; J7050